=== PATIENT | female | born 1955 | race Caucasian/White ===

== ENCOUNTER 2016-05-12 07:30 | Inpatient (IN) | payer MEDICARE, MEDICAID ==
[~2016-05-12] VITALS: Ht 162.6 cm; Wt 56.5 kg
[~2016-05-12 07:30] MED LIST: GABA300C PO; LAMO25TA PO; LITH450T PO; TRAM50TA2 PO
[2016-05-19] MEDS ORDERED: BACITRACIN 50,000 UNIT ONE (07:00)
[2016-05-19] MEDS ORDERED: BUPIVACAINE/PF-EPI 0.5% 1:200K ONE (07:00)
[2016-05-19] MEDS ORDERED: THROMBIN 5,000 UNIT VIAL TP ONE (07:00)
[2016-05-19] MEDS ORDERED: LACTATED RINGERS 1,000 ML IV SCH (09:32)
[2016-05-19 10:00] VITALS: BP 106/58
[2016-05-19] MEDS ORDERED: FENTANYL PF 250 MCG/5ML ONE (13:09)
[2016-05-19] MEDS ORDERED: KETAMINE 10 MG/ML, 20ML ONE (13:09)
[2016-05-19] MEDS ORDERED: FENTANYL PF 100 MCG/2ML IV PRN (14:00)
[2016-05-19] MEDS ORDERED: LABETALOL 5MG/ML, 20ML IV PRN (14:00)
[2016-05-19] MEDS ORDERED: OXYcodone 5 MG/5 ML ORAL.SOL UDC PO PRN (14:00)
[2016-05-19] MEDS ORDERED: MIDAZOLAM 1 MG/ML, 2ML IV PRN (14:00)
[2016-05-19] MEDS ORDERED: HYDROmorphone 1 MG/ML, 1ML IV PRN (14:00)
[2016-05-19] MEDS ORDERED: ONDANSETRON 2MG/ML, 2ML IVPush PRN ×2 (14:00→16:00)
[2016-05-19] MEDS ORDERED: PROMETHAZINE 25 MG/ML, 1ML IV PRN (14:00)
[2016-05-19] MEDS ORDERED: hydrALAzine 20 MG/ML, 1ML IV PRN (14:00)
[2016-05-19] MEDS ORDERED: MEPERIDINE/PF 25MG/0.5ML IVPush PRN (14:00)
[2016-05-19] MEDS ORDERED: SUCCINYLCHOLINE 20 MG/ML, 10ML ONE (15:15)
[2016-05-19] MEDS ORDERED: METOCLOPRAMIDE 5 MG/ML, 2ML ONE (15:15)
[2016-05-19] MEDS ORDERED: PROPOFOL 10 MG/ML, 50ML ONE (15:15)
[2016-05-19] MEDS ORDERED: GLYCOPYRROLATE 0.2MG/1ML ONE (15:15)
[2016-05-19] MEDS ORDERED: PROPOFOL 10 MG/ML, 20ML ONE (15:15)
[2016-05-19] MEDS ORDERED: DEXAMETHASONE 4 MG/ML, 1ML ONE (15:15)
[2016-05-19] MEDS ORDERED: CEFAZOLIN 1,000 MG ONE (15:15)
[2016-05-19] MEDS ORDERED: ONDANSETRON 2MG/ML, 2ML ONE (15:15)
[2016-05-19] MEDS ORDERED: PHARMACY MAY ADJ FOR RENAL FX MC PRN (16:00)
[2016-05-19] MEDS ORDERED: BISACODYL 10 MG SUPP PR PRN (16:00)
[2016-05-19] MEDS ORDERED: PROMETHAZINE 25 MG/ML, 1ML IM PRN (16:00)
[2016-05-19] MEDS ORDERED: METHOCARBAMOL 750 MG TABLET PO PRN (16:00)
[2016-05-19] MEDS ORDERED: MAGNESIUM HYDROXIDE 8%, 30ML UDC PO PRN (16:00)
[2016-05-19] MEDS ORDERED: HYDROmorphone 2 MG/ML, 1ML IV PRN (16:00)
[2016-05-19] MEDS ORDERED: FENTANYL PF 100 MCG/2ML ONE (16:20)
[2016-05-19] MEDS ORDERED: OXYcodone 5 MG/5 ML ORAL.SOL UDC ONE (16:20)
[2016-05-19] MEDS ORDERED: HYDROmorphone 2 MG/ML, 1ML ONE (16:44)
[2016-05-19] MEDS: LITHIUM CARBONATE 150 MG CAPSULE PO SCH ×2 (17:30→20:42)
[2016-05-19 19:20] VITALS: BP 113/68
[2016-05-19] MEDS: SODIUM CHLORIDE FLUSH 10ML SYR IVF SCH (20:47)
[2016-05-19] MEDS: CEFAZOLIN PMX 1GM/50ML 50 ML IVPB SCH (20:47)
[2016-05-19] MEDS: NS + 20MEQ KCL 1,000 ML IV SCH (20:47)
[2016-05-19] MEDS: HYDROcodone/APAP 10/325 MG TABLET PO PRN ×2 (20:47→22:51)
[2016-05-19] MEDS ORDERED: GABAPENTIN 300 MG CAPSULE PO SCH (21:00)
[2016-05-20 00:10] VITALS: BP 106/68
[2016-05-20 02:57] VITALS: BP 102/62
[2016-05-20] MEDS: HYDROcodone/APAP 10/325 MG TABLET PO PRN ×3 (03:01→11:40)
[2016-05-20] MEDS: NS + 20MEQ KCL 1,000 ML IV SCH (03:30)
[2016-05-20] MEDS: CEFAZOLIN PMX 1GM/50ML 50 ML IVPB SCH (05:10)
[2016-05-20] MEDS: LITHIUM CARBONATE 150 MG CAPSULE PO SCH (07:43)
[2016-05-20] MEDS: SODIUM CHLORIDE FLUSH 10ML SYR IVF SCH (07:43)
[2016-05-20 07:48] VITALS: BP 100/63
[2016-05-20] MEDS ORDERED: SENNA/DOCUSATE TABLET PO SCH (09:00)
[2016-05-20] MEDS ORDERED: LAMOTRIGINE 25 MG TABLET PO SCH (09:00)
[2016-05-20] MEDS ORDERED: HYDR-3307 PO (13:34)
[2016-05-20] MEDS ORDERED: METH750T87 PO (13:34)
[2016-05-20] MEDS ORDERED: POLY119P4 PO (13:45)
== END 2016-05-20 14:00 | disposition home or self-care (01) | DRG 473 ==
LOC: ORIP 05-19 09:03 → 4NOR 05-19 17:18 → DCLOUNGE 05-20 13:23
PROVIDERS: ADMIT Neurological Surgery; ATTEND Neurological Surgery
PROC: 0RB30ZZ Excision of Cervical Vertebral Disc, Open Approach (ICD-10-PCS; 2016-05-19)
PROC: 4A11X4G Monitoring of Peripheral Nervous Electrical Activity, Intraoperative, External Approach (ICD-10-PCS; 2016-05-19)
PROC: 0RG20A0 Fusion of 2 or more Cervical Vertebral Joints with Interbody Fusion Device, Anterior Approach, Anterior Column, Open Approach (ICD-10-PCS; principal; 2016-05-19 12:30)
DX: M50.121 Cervical disc disorder at C4-C5 level with radiculopathy (principal); M50.122 Cervical disc disorder at C5-C6 level with radiculopathy; M06.9 Rheumatoid arthritis, unspecified; F17.200 Nicotine dependence, unspecified, uncomplicated; K59.00 Constipation, unspecified; Z90.49 Acquired absence of other specified parts of digestive tract; M81.0 Age-related osteoporosis without current pathological fracture; F32.9 Major depressive disorder, single episode, unspecified
CPT/HCPCS: 36415; 72040; 86850; 86900; 95938; 95941; C1713; C1776; J0690; J1100; J1170; J2405; J2704; J3010; J3480; J3490; J0330; J2765; J7120